=== PATIENT | male | born 2000 | race Caucasian/White ===

== ENCOUNTER 2024-07-17 22:58 | Emergency (ER) | payer OTHER ==
[~2024-07-17] VITALS: Ht 177.8 cm; Wt 74.0 kg
[2024-07-17 23:30] VITALS: O2SAT 100
[2024-07-18 06:00] VITALS: BP 122/74; PULSE 69; RESP 18; TEMP 36.9; O2SAT 98
== END 2024-07-18 04:00 | disposition home or self-care (01) ==
LOC: ER 22:58
DX: N48.89 Other specified disorders of penis (principal)
CPT/HCPCS: 99281